=== PATIENT | female | born 1985 | race Caucasian/White ===

== ENCOUNTER 2017-04-04 11:44 | Emergency (ER) | payer OTHER ==
[2017-04-04 12:05] VITALS: BP 97/60; PULSE 82; TEMP 98.8; BMI 18.2
[2017-04-04] MEDS ORDERED: TRIAMCINOLONE ACET 40MG/1ML VIAL IM ONE (12:40)
--- NOTE | 2017-04-04 12:46 | PDOC ---
History of Present Illness - General Chief Complaint: Rash Stated Complaint: RASH Time Seen by Provider: 04/04/17 12:18 History Source: Patient Exam Limitations: No Limitations - History of Present Illness Initial Comments: 04/04/17 12:42 31 yr female with insect bites to the face for one week. Pt states this may have happened at her job. Pt has been using cortisone cream and benadryl cream however the itching continues. no fever no chills, pt has bites under her left eyebrow pt had her eyebrows waxed yesterday. pt has no medical history. 04/04/17 19:04 Past History - Past Medical History Allergies/Adverse Reactions: Allergies Allergy/AdvReac Type Severity Reaction Status Date / Time Penicillins Allergy Hives Verified 04/04/17 12:02 Home Medications: Ambulatory Orders Diphenhydramine HCl [Benadryl -] 25 mg PO Q6H 04/04/17 Hydrocortisone 1% Cream [Hytone 1% Cream -] 1 applic TP TID 04/04/17 Cardiac Disorders: Yes (CLOGGEED AORTA, HEART MURMUR) - Psycho/Social/Smoking Cessation Hx Anxiety: No Suicidal Ideation: No Smoking Status: Yes Smoking History: Current every day smoker Have you smoked in the past 12 months: Yes Number of Cigarettes Smoked Daily: 3 Information on smoking cessation initiated: No Review of Systems - Review of Systems Able to Perform ROS?: Yes Is the patient limited Ghanaian proficient: No Constitutional: No: Symptoms Reported Integumentary: Yes: Symptoms Reported, See HPI *Physical Exam - Vital Signs Last Vital Signs Temp Pulse Resp BP Pulse Ox 98.8 F 82 20 97/60 100 04/04/17 12:02 04/04/17 12:02 04/04/17 12:02 04/04/17 12:02 04/04/17 12:02 - Physical Exam General Appearance: Yes: Nourished, Appropriately Dressed HEENT: positive: EOMI, ODALIS, Normal ENT Inspection, TMs Normal, Pharynx Normal Neck: positive: Supple. negative: Tender Respiratory/Chest: positive: Lungs Clear, Normal Breath Sounds Cardiovascular: positive: Regular Rhythm, Regular Rate Musculoskeletal: positive: Normal Inspection Extremity: positive: Normal Capillary Refill, Normal Inspection, Other (left side face, yazidism, forehead and under eyeborw with maculopapular 2mm wheels consistent with mosquito bite, no drainage mild redness ) Neurologic: positive: Fully Oriented, Alert, Normal Mood/Affect, Normal Response , Motor Strength 5/5 Medical Decision Making - Medical Decision Making 04/04/17 19:04 cc: insect bites to left side of face itchy no drainage no fever *DC/Admit/Observation/Transfer Diagnosis at time of Disposition: Insect bites Qualifiers: Encounter type: initial encounter Qualified Code(s): W57.XXXA - Bitten or stung by nonvenomous insect and other nonvenomous arthropods, initial encounter - Discharge Dispostion Disposition: HOME Condition at time of disposition: Stable - Referrals Referrals: Jeff Mcdowell PA [Primary Care Provider] - Avani Rubio MD [Staff Physician] - - Patient Instructions Additional Instructions: cool compresses ice to the area keep hands off the area as this can cause infection continue to apply the cortisone three times a day with the bendaryl cream you can also take motrin (over the counter advil, ibuprofen or motrin) 400mg every 6hrs for swelling follow with the clinical cytogenetics director if any worsening symptoms
[2017-04-04] MEDS ORDERED: TRIAMCINOLONE ACET 40MG/1ML VIAL ONE (12:48)
== END 2017-04-04 12:54 | disposition home or self-care (01) ==
LOC: JERFT 11:44
PROC: 3E0233Z Introduction of Anti-inflammatory into Muscle, Percutaneous Approach (ICD-10-PCS; principal; 2017-04-04)
DX: S00.86XA Insect bite (nonvenomous) of other part of head, initial encounter (principal); W57.XXXA Bitten or stung by nonvenomous insect and other nonvenomous arthropods, initial encounter; Y93.89 Activity, other specified; Y92.89 Other specified places as the place of occurrence of the external cause; Y99.0 Civilian activity done for income or pay
CPT/HCPCS: 96372; 99281-25

== ENCOUNTER 2020-07-21 00:17 | Emergency (ER) | payer OTHER ==
[2020-07-21 00:30] VITALS: BP 129/72; PULSE 76; TEMP 98.6; BMI 16.1
[2020-07-21] MEDS ORDERED: ACETAMINOPHEN 325 MG TABLET (FP) ONE (01:24)
[2020-07-21] MEDS: ACETAMINOPHEN 500 MG TABLET (FP) PO ONE ×2 (01:41→02:38)
[2020-07-21 01:55] LABS: BASO % 0.8 % (0-2.0); EOS % 2.2 % (0-4.5); HEMATOCRIT 35.3 % (32.4-45.2); LYMPH % 59.7 % (8-40); MCH 30.5 pg (25.7-33.7); MCHC 33.9 g/dl (32.0-36.0); MEAN CELL VOLUME 89.9 fl (80-96); MEAN PLT VOLUME 8.6 fl (7.5-11.1); MONO % 4.7 % (3.8-10.2); NEUT % 32.6 % (42.8-82.8); PLATELET COUNT 163 K/MM3 (134-434); RBC 3.92 M/mm3 (3.60-5.2); RDW 12.3 % (11.6-15.6)
[2020-07-21 02:16] LABS: CHLORIDE 106 mmol/L (98-107); SODIUM 141 mmol/L (136-145)
[2020-07-21 02:18] LABS: CALCIUM 8.6 mg/dL (8.5-10.1)
[2020-07-21 02:19] LABS: ALBUMIN 3.4 g/dl (3.4-5.0); ANION GAP 4 MMOL/L (8-16); BLOOD UREA NITROGEN 12.4 mg/dL (7-18); CO2 31 mmol/L (21-32); GLUCOSE,RANDOM 89 mg/dL (74-106)
[2020-07-21 02:22] LABS: CREATININE 0.9 mg/dL (0.55-1.3); SGOT/AST 12 U/L (15-37); SGPT/ALT 13 U/L (13-61)
[2020-07-21 02:23] LABS: BILIRUBIN,TOTAL 0.2 mg/dL (0.2-1); TOT PROT 6.7 g/dl (6.4-8.2)
[2020-07-21 02:25] LABS: ALK PHOS 104 U/L (45-117)
== END 2020-07-21 02:48 | disposition home or self-care (01) ==
LOC: JER 00:17
DX: M79.10 Myalgia, unspecified site (principal)
CPT/HCPCS: 36415; 71045-TC-FY; 71250-TC; 80053; 84484; 84703; 85025; 93005; 93010; 99284-25

== ENCOUNTER 2021-01-10 20:08 | Emergency (ER) | payer OTHER ==
[2021-01-10 20:14] VITALS: BP 96/60; PULSE 81; TEMP 98; BMI 17.4
== END 2021-01-10 22:03 | disposition home or self-care (01) ==
LOC: JERFT 20:08
DX: J30.9 Allergic rhinitis, unspecified (principal); H92.02 Otalgia, left ear
CPT/HCPCS: 99283-25

== ENCOUNTER 2021-01-19 17:11 | Emergency (ER) | payer OTHER ==
[2021-01-19 17:26] VITALS: BMI 17.9
[2021-01-19] MEDS ORDERED: ACETAMINOPHEN 325 MG TABLET (FP) PO ONE ×2 (17:41→17:58)
[2021-01-19] MEDS ORDERED: ACETAMINOPHEN 325 MG TABLET (FP) ONE (17:48)
[2021-01-19] MEDS ORDERED: IBUPROFEN 400 MG TABLET (FP) PO ONE (17:49)
[2021-01-19 18:44] LABS: PH,URINE 5.5 (5.0-8.0); URINE APPEARANCE Clear; URINE BILIRUBIN Negative (NEGATIVE); URINE COLOR Yellow; URINE GLUCOSE (UA) Negative (NEGATIVE); URINE KETONE Trace (NEGATIVE); URINE LEUK ESTERASE Negative (NEGATIVE); URINE NITRITE Negative (NEGATIVE); URINE PROTEIN Negative (NEGATIVE); URINE UROBILINOGEN 0.2 mg/dL (0.2-1.0)
[2021-01-19 18:51] LABS: HCG,QUALITATIVE URINE Negative
[2021-01-19 19:14] VITALS: BP 105/60; PULSE 80; TEMP 98.2
[2021-01-19 20:36] LABS: EPI CELLS 28.4 /uL (0-25.1); HYALINE CASTS 3.81 /uL (0-3.1); URINE BACTERIA 489.2 /uL (0-1359); URINE WBC 18.8 /uL (0-25.8)
[2021-01-19 20:48] LABS: URINE RBC 25.6 /uL (0-23.9)
== END 2021-01-19 19:14 | disposition home or self-care (01) ==
LOC: JER 17:11
DX: B34.9 Viral infection, unspecified (principal)
CPT/HCPCS: 81003; 84703; 87086; 87880; 99284-25; C9803; U0003; U0005

== ENCOUNTER 2021-07-01 22:46 | Emergency (ER) | payer OTHER ==
[2021-07-01 23:01] VITALS: BP 98/67; PULSE 78; TEMP 98.9; BMI 16.1
== END 2021-07-02 01:46 | disposition home or self-care (01) ==
LOC: JER 22:46
DX: J06.9 Acute upper respiratory infection, unspecified (principal)
CPT/HCPCS: 87804; 99283-25; C9803; U0003; U0005

== ENCOUNTER 2022-04-16 15:45 | Observation (INO) | payer OTHER ==
[2022-04-16] MEDS: SODIUM CHLORIDE 1,000 ML IV SCH (17:50)
[2022-04-16 18:15] LABS: BASO % 0.5 % (0-2.0); EOS % 1.7 % (0-4.5); HEMATOCRIT 40.1 % (32.4-45.2); LYMPH % 56.1 % (8-40); MCH 28.9 pg (25.7-33.7); MCHC 32.4 g/dl (32.0-36.0); MEAN CELL VOLUME 89.2 fl (80-96); MEAN PLT VOLUME 8.7 fl (7.5-11.1); MONO % 4.8 % (3.8-10.2); NEUT % 36.9 % (42.8-82.8); PLATELET COUNT 206 10^3/uL (134-434); RBC 4.49 M/mm3 (3.60-5.2); RDW 12.2 % (11.6-15.6); WHITE BLOOD COUNT 5.4 K/mm3 (4.0-10.0)
[2022-04-16 18:29] LABS: EPI CELLS 13 /uL (0-25.1); HYALINE CASTS 0 /uL (0-3.1); URINE APPEARANCE CLEAR; URINE BACTERIA 501 /uL (0-1359); URINE BILIRUBIN NEGATIVE (NEGATIVE); URINE COLOR YELLOW; URINE GLUCOSE (UA) NEGATIVE (NEGATIVE); URINE KETONE NEGATIVE (NEGATIVE); URINE LEUK ESTERASE TRACE (NEGATIVE); URINE NITRITE NEGATIVE (NEGATIVE); URINE PROTEIN NEGATIVE (NEGATIVE); URINE RBC 12 /uL (0-23.9); URINE UROBILINOGEN 0.2 mg/dL (0.2-1.0); URINE WBC 16 /uL (0-25.8)
[2022-04-16 18:32] LABS: INR 1.03 (0.83-1.09); PROTHROMBIN TIME (PATIENT) 11.9 SEC (9.7-13.0)
[2022-04-16 18:33] LABS: BLOOD UREA NITROGEN 8.6 mg/dL (7-18); CALCIUM 9.4 mg/dL (8.5-10.1)
[2022-04-16 18:34] LABS: ACTIVATED PTT 37.6 SECONDS (25.2-36.5); ALBUMIN 3.7 g/dl (3.4-5.0)
[2022-04-16 18:36] LABS: CREATININE 0.8 mg/dL (0.55-1.3)
[2022-04-16 18:38] LABS: BILIRUBIN,TOTAL 0.2 mg/dL (0.2-1); TOT PROT 7.1 g/dl (6.4-8.2)
[2022-04-17 02:37] VITALS: BMI 16.7
[2022-04-17 07:49] LABS: BASO % 0.8 % (0-2.0); EOS % 2.1 % (0-4.5); HEMATOCRIT 35.4 % (32.4-45.2); HEMOGLOBIN 11.6 GM/dL (10.7-15.3); LYMPH % 57.3 % (8-40); MCH 29.3 pg (25.7-33.7); MCHC 32.8 g/dl (32.0-36.0); MEAN CELL VOLUME 89.4 fl (80-96); MEAN PLT VOLUME 8.7 fl (7.5-11.1); MONO % 6.3 % (3.8-10.2); NEUT % 33.5 % (42.8-82.8); PLATELET COUNT 187 10^3/uL (134-434); RBC 3.96 M/mm3 (3.60-5.2); RDW 11.9 % (11.6-15.6); WHITE BLOOD COUNT 5.2 K/mm3 (4.0-10.0)
[2022-04-17 08:25] LABS: ALBUMIN 3.3 g/dl (3.4-5.0)
[2022-04-17 08:26] LABS: BLOOD UREA NITROGEN 13.1 mg/dL (7-18)
[2022-04-17 08:29] LABS: BILIRUBIN,TOTAL 0.3 mg/dL (0.2-1); CREATININE 0.8 mg/dL (0.55-1.3); TOT PROT 6.2 g/dl (6.4-8.2)
[2022-04-17] MEDS: ENOXAPARIN NA (PORCINE) 40 MG/0.4 ML DISP.SYRIN SQ SCH ×2 (10:34→14:15)
[2022-04-17] MEDS: ASPIRIN COATED 81 MG TABLET.EC PO SCH ×2 (10:34→14:16)
[2022-04-17] MEDS: SODIUM CHLORIDE 1,000 ML IV SCH (17:34)
[2022-04-17] MEDS: ATORVASTATIN CA 40 MG TABLET (FP) PO SCH (21:38)
[2022-04-17] MEDS ORDERED: ATORVASTATIN CA 20 MG TABLET (FP) PO SCH (22:00)
[2022-04-18] MEDS: ENOXAPARIN NA (PORCINE) 40 MG/0.4 ML DISP.SYRIN SQ SCH (09:56)
[2022-04-18] MEDS: ASPIRIN COATED 81 MG TABLET.EC PO SCH (09:56)
[2022-04-18] MEDS: SODIUM CHLORIDE 1,000 ML IV SCH (19:21)
[2022-04-18] MEDS: ATORVASTATIN CA 40 MG TABLET (FP) PO SCH (21:08)
[2022-04-19] MEDS: ASPIRIN COATED 81 MG TABLET.EC PO SCH (09:57)
[2022-04-19] MEDS: ENOXAPARIN NA (PORCINE) 40 MG/0.4 ML DISP.SYRIN SQ SCH (09:57)
[2022-04-19] MEDS: ATORVASTATIN CA 40 MG TABLET (FP) PO SCH (21:13)
[2022-04-19] MEDS: SODIUM CHLORIDE 1,000 ML IV SCH (21:13)
[2022-04-20] MEDS ORDERED: ACETAMINOPHEN 325 MG TABLET (FP) PO PRN (16:01)
[2022-04-20] MEDS: ENOXAPARIN NA (PORCINE) 40 MG/0.4 ML DISP.SYRIN SQ SCH (18:07)
[2022-04-20] MEDS: ASPIRIN COATED 81 MG TABLET.EC PO SCH (18:07)
[2022-04-20] MEDS: SODIUM CHLORIDE 1,000 ML IV SCH (18:08)
[2022-04-20] MEDS: ATORVASTATIN CA 40 MG TABLET (FP) PO SCH (21:05)
[2022-04-21] MEDS: ASPIRIN COATED 81 MG TABLET.EC PO SCH (09:47)
[2022-04-21] MEDS: ENOXAPARIN NA (PORCINE) 40 MG/0.4 ML DISP.SYRIN SQ SCH (09:47)
[2022-04-21 09:51] VITALS: BP 124/55; PULSE 58; RESP 18; TEMP 98.7
== END 2022-04-21 12:19 | disposition short-term general hospital (02) ==
LOC: JER 15:45 → UNDOADMOB 18:21 → JERBED 18:21 → INTOOBSV 18:21 → J4W 04-17 01:22 → JERBED 04-17 01:22 → J4W 04-17 11:17
PROVIDERS: ADMIT Internal Medicine; ATTEND Internal Medicine
DX: I47.1 Supraventricular tachycardia (principal); I49.8 Other specified cardiac arrhythmias; R00.2 Palpitations; R07.9 Chest pain, unspecified; F41.9 Anxiety disorder, unspecified; I48.0 Paroxysmal atrial fibrillation; Z88.0 Allergy status to penicillin; R53.1 Weakness; F17.210 Nicotine dependence, cigarettes, uncomplicated
CPT/HCPCS: 0241U-QW; 36415; 70450-TC; 70496-TC; 70498-TC; 70551-TC; 80053; 80061; 81003; 82962; 83036; 84443; 84484; 85025; 85379; 85610; 85730; 86618; 86850; 86900; 86901; 93005; 93010; 93306-TC; 93880-TC; 97116-GP; 97161-GP; 99285-25; C9803-CS; G0378; U0003; U0005

== ENCOUNTER 2024-02-24 20:58 | Emergency (ER) | payer OTHER ==
[2024-02-24 21:07] VITALS: RESP 18; TEMP 99.5; BMI 20.8
[2024-02-24] MEDS ORDERED: ACETAMINOPHEN INJECTION 100 ML IVPB ONE (21:50)
[2024-02-24 22:16] LABS: EOS % 1.8 % (0-4.5); HEMATOCRIT 35.6 % (32.4-45.2); HEMOGLOBIN 11.8 GM/dL (10.7-15.3); LYMPH % 43.2 % (8-40); MCH 28.4 pg (25.7-33.7); MCHC 33.2 g/dl (32.0-36.0); MEAN CELL VOLUME 85.6 fl (80-96); MEAN PLT VOLUME 8.3 fl (7.5-11.1); MONO % 6.3 % (3.8-10.2); NEUT % 47.7 % (42.8-82.8); PLATELET COUNT 251 10^3/uL (134-434); RBC 4.16 M/mm3 (3.60-5.2); RDW 13.3 % (11.6-15.6); WHITE BLOOD COUNT 5.8 K/mm3 (4.0-10.0)
[2024-02-24 22:23] LABS: INR 1.02 (0.83-1.09); PROTHROMBIN TIME (PATIENT) 11.5 SEC (9.7-13.0)
[2024-02-24 22:26] LABS: ACTIVATED PTT 34.5 SECONDS (25.2-36.5)
[2024-02-24 22:38] LABS: CALCIUM 9.3 mg/dL (8.5-10.1); POTASSIUM 4.5 mmol/L (3.5-5.1)
[2024-02-24 22:40] LABS: ALBUMIN 3.4 g/dl (3.4-5.0); BLOOD UREA NITROGEN 14.9 mg/dL (7-18)
[2024-02-24 22:43] LABS: CREATININE 0.8 mg/dL (0.55-1.3)
[2024-02-24 22:45] LABS: BILIRUBIN,TOTAL 0.2 mg/dL (0.2-1); TOT PROT 7.3 g/dl (6.4-8.2)
[2024-02-24] MEDS: ACETAMINOPHEN 1000 MG/100 ML BAG IVPB ONE (22:48)
[2024-02-24] MEDS: LACTATED RINGERS SOLUTION 1000 ML INFUS.BAG IV ONE (23:16)
[2024-02-24 23:25] VITALS: BP 158/66; PULSE 82
== END 2024-02-25 01:23 | disposition home or self-care (01) ==
LOC: JER 20:58
PROC: 3E033NZ Introduction of Analgesics, Hypnotics, Sedatives into Peripheral Vein, Percutaneous Approach (ICD-10-PCS; principal; 2024-02-24)
DX: R07.81 Pleurodynia (principal); R19.7 Diarrhea, unspecified; R50.9 Fever, unspecified; R05.9 Cough, unspecified; R09.81 Nasal congestion; Z20.822 Contact with and (suspected) exposure to COVID-19
CPT/HCPCS: 0241U-QW; 36415; 71046-TC-FY; 71275-TC; 80053; 84484; 84703; 85025; 85379; 85610; 85730; 87651; 93005; 93010; 99285-25; J0131